=== PATIENT | male | born 1955 | race Two or more races ===

== ENCOUNTER 2022-12-15 15:54 | Inpatient (IN) | payer OTHER ==
[2022-12-15] VITALS (11 sets, daily range): BP systolic 117–144; BP diastolic 70–92; PULSE 62–88; RESP 14–20; TEMP 97.7–98.1; O2SAT 62–99
[~2022-12-15] VITALS: Ht 185.4 cm; Wt 103.8 kg
[2022-12-15] MEDS ORDERED: ONDANSETRON HCL 4 MG/2 ML VIAL IV ONE (16:15)
[2022-12-15] MEDS ORDERED: MIDAZOLAM HCL 2MG/2ML 2ml VIAL (1mg/ml) ONE (16:30)
[2022-12-15] MEDS ORDERED: VERAPAMIL 2.5MG/ML INJ 2ML VIAL IV ONE (16:30)
[2022-12-15] MEDS ORDERED: SODIUM CHL 0.9% 0 ML ONE (16:30)
[2022-12-15] MEDS ORDERED: MORPHINE SULFATE 4 MG/ML SYR/VIAL IV ONE (16:30)
[2022-12-15] MEDS ORDERED: fentaNYL CITRATE 100 MCG/2 ML VL ONE (16:30)
[2022-12-15] MEDS ORDERED: ANGIOMAX 250 MG VIAL IV ONE (16:30)
[2022-12-15] MEDS ORDERED: LIDOCAINE 2%HCL (LOCAL ANESTH.) INJ 20ML MDV ONE (16:34)
[2022-12-15 16:35] LABS: Basophils # (auto) 0 10 ^3/uL (0-0.2); Basophils % (auto) 0.9 % (0.0-2.0); Eosinophils # (auto) 0.1 10 ^3/uL (0-0.8); Hemoglobin 14.4 g/dL (13.5-17.5); Lymphocytes # (auto) 1.5 10 ^3/uL (0.4-5.4); Lymphocytes % (auto) 26.7 % (10.0-50.0); Mean Corpuscular Hgb Conc. 33.5 g/dL (32.0-36.0); Mean Corpuscular Volume 98.6 fL (80.0-100.0); Monocytes # (auto) 0.6 10 ^3/uL (0-1.3); Monocytes % (auto) 11.8 % (0.0-12.0); Neutrophils # (auto) 3.2 10 ^3/uL (1.6-8.6); Neutrophils % (auto) 58.6 % (37.0-80.0); Nucleated Red Blood Cells % 0.2 %; Red Blood Cells 4.36 10^6/uL (4.5-5.90); White Blood Cell 5.5 10^3/uL (4.4-10.8)
[2022-12-15] MEDS ORDERED: IODIXANOL 320MG/ML 100ML BTL IV ONE (16:35)
[2022-12-15] MEDS ORDERED: LIDOCAINE 1% HCL (LOCAL ANESTH.) INJ 20ML MDV ONE (16:51)
[2022-12-15] MEDS ORDERED: HEPARIN SODIUM (PORCINE) 5000 UNITS/ML 1ML VIAL ONE ×3 (16:53→17:22)
[2022-12-15 16:54] LABS: Albumin 3.7 g/dL (3.4-5.0); Calcium 8.8 mg/dL (8.5-10.1); Magnesium 2.3 mg/dL (1.6-2.6); Potassium 3.9 mmol/L (3.5-5.1)
[2022-12-15] MEDS ORDERED: IOHEXOL 350 MG/ML 100ML IJ ONE (16:55)
[2022-12-15 16:57] LABS: INR 1.09 (0.9-1.15); Partial Thromboplastin Time 26.9 SEC (24.5-34.5)
[2022-12-15 16:58] LABS: BUN/Creatinine Ratio 21.3 (10.0-20.0); Bilirubin, Total 0.5 mg/dL (0.2-1.0); Total Protein 6.8 g/dL (6.4-8.2)
[2022-12-15] MEDS ORDERED: diphenhdrAMINE HCL 50 MG/1 ML VL ONE (16:58)
[2022-12-15] MEDS ORDERED: EPTIFIBATIDE INJ (2MG/ML) 10ML VIAL IV ONE (17:20)
[2022-12-15] MEDS ORDERED: ATROPINE SULF 1 MG/10ml SYR ONE (17:24)
[2022-12-15] MEDS ORDERED: TICAGRELOR 90 MG TAB ONE (17:26)
[2022-12-15] MEDS ORDERED: MORPHINE SULFATE INJ 2 MG/ml SYRG IV PRN ×2 (17:45→18:00)
[2022-12-15] MEDS ORDERED: NITROGLYCERIN 0.4 MG SL TAB SL PRN ×3 (17:45→18:00)
[2022-12-15] MEDS ORDERED: ACETAMINOPHEN 500 MG TAB PO PRN (18:00)
[2022-12-15] MEDS ORDERED: SODIUM CHL 0.9% 500 ML IV ONE (18:00)
[2022-12-15] MEDS ORDERED: LEVO112T4 PO (19:54)
[2022-12-15] MEDS ORDERED: LOSA50TA46 PO (19:54)
[2022-12-15] MEDS ORDERED: LOSA25TA15 PO (19:54)
[2022-12-16] VITALS (10 sets, daily range): BP systolic 115–153; BP diastolic 68–77; PULSE 56–69; RESP 17–19; TEMP 97.6–98.3; O2SAT 94–97
[2022-12-16 06:25] LABS: Basophils # (auto) 0 10 ^3/uL (0-0.2); Basophils % (auto) 0.8 % (0.0-2.0); Eosinophils # (auto) 0.1 10 ^3/uL (0-0.8); Eosinophils % (auto) 1.7 % (0.0-7.0); Hematocrit 41.5 % (41.0-53.0); Lymphocytes % (auto) 19.6 % (10.0-50.0); Mean Corpuscular Hemoglobin 33.5 pg (28.0-32.0); Mean Corpuscular Hgb Conc. 33.7 g/dL (32.0-36.0); Mean Corpuscular Volume 99.6 fL (80.0-100.0); Monocytes # (auto) 0.5 10 ^3/uL (0-1.3); Monocytes % (auto) 9.9 % (0.0-12.0); Neutrophils # (auto) 3.6 10 ^3/uL (1.6-8.6); Red Blood Cells 4.17 10^6/uL (4.5-5.90); Red Cell Distribution Width 13.2 % (11.8-14.3); White Blood Cell 5.3 10^3/uL (4.4-10.8)
[2022-12-16 06:41] LABS: BUN/Creatinine Ratio 15.3 (10.0-20.0); Calcium 8.7 mg/dL (8.5-10.1); Potassium 4.2 mmol/L (3.5-5.1)
[2022-12-16 07:04] LABS: Urine Bacteria NONE SEEN /hpf (None Seen); Urine Blood Negative /uL (Negative); Urine Specific Gravity 1.015 (1.001-1.035); Urine WBC 1 /hpf (0 - 3)
[2022-12-16] MEDS ORDERED: IBUP1TAB5 PO (07:17)
[2022-12-16] MEDS ORDERED: ERGO1CAP12 PO (07:17)
[2022-12-16] MEDS ORDERED: GAB100C PO (07:17)
[2022-12-16 08:19] LABS: Cholesterol 169 mg/dL (< 200); HDL Cholesterol 46 mg/dL (40-59); LDL Cholesterol 104 mg/dL (< 100); Triglycerides 108 mg/dL (< 150)
[2022-12-16 08:22] LABS: Alcohol, Urine < 3.0 mg/dL (0-10); Amphetamine Screen, Urine NEGATIVE (NEGATIVE); Barbiturate Scree,Urine NEGATIVE (NEGATIVE); Benzodiazephine Screen, Urine POSITIVE (NEGATIVE); Cannabinoid Screen, Urine POSITIVE (NEGATIVE); Cocaine Screen, Urine NEGATIVE (NEGATIVE); Opiate Scree,Urine NEGATIVE (NEGATIVE); Phencyclidine Screen, Urine NEGATIVE (NEGATIVE)
[2022-12-16] MEDS: TICAGRELOR 90 MG TAB PO SCH ×2 (08:55→21:50)
[2022-12-16] MEDS ORDERED: ERGOCALCIFEROL 50,000 UNIT(1.25MG) CAP PO SCH (10:00)
[2022-12-16] MEDS ORDERED: GABAPENTIN 100 MG CAP PO ONE (10:15)
[2022-12-16] MEDS ORDERED: LEVOTHYROXINE SODIUM 112 MCG TAB PO ONE ×2 (10:15→11:00)
[2022-12-16] MEDS: CARVEDILOL 3.125 MG TAB PO SCH ×2 (10:36→21:53)
[2022-12-16] MEDS: IBUPROFEN 600 MG TAB PO PRN (10:36)
[2022-12-16] MEDS: ASPirin 81 mg TAB PO SCH (10:37)
[2022-12-16] MEDS ORDERED: LOSARTAN POTASSIUM 25 MG TAB PO SCH (18:00)
[2022-12-16] MEDS ORDERED: ATORVASTATIN 20 MG TAB PO SCH (22:00)
[2022-12-17] VITALS (7 sets, daily range): BP systolic 122–162; BP diastolic 54–88; PULSE 57–69; RESP 16–20; TEMP 97.5–98.4; O2SAT 96–99
[2022-12-17] MEDS: IBUPROFEN 600 MG TAB PO PRN (06:33)
[2022-12-17 06:51] LABS: Basophils # (auto) 0 10 ^3/uL (0-0.2); Basophils % (auto) 0.6 % (0.0-2.0); Eosinophils # (auto) 0.2 10 ^3/uL (0-0.8); Eosinophils % (auto) 3.1 % (0.0-7.0); Hematocrit 41.1 % (41.0-53.0); Lymphocytes # (auto) 1.1 10 ^3/uL (0.4-5.4); Lymphocytes % (auto) 18.9 % (10.0-50.0); Mean Corpuscular Hemoglobin 33.5 pg (28.0-32.0); Mean Corpuscular Hgb Conc. 34.1 g/dL (32.0-36.0); Mean Corpuscular Volume 98.1 fL (80.0-100.0); Monocytes # (auto) 0.6 10 ^3/uL (0-1.3); Monocytes % (auto) 10.9 % (0.0-12.0); Neutrophils # (auto) 3.8 10 ^3/uL (1.6-8.6); Neutrophils % (auto) 66.5 % (37.0-80.0); Nucleated Red Blood Cells % 0.1 %; Red Blood Cells 4.19 10^6/uL (4.5-5.90); White Blood Cell 5.7 10^3/uL (4.4-10.8)
[2022-12-17 06:52] LABS: BUN/Creatinine Ratio 16.4 (10.0-20.0); Calcium 8.9 mg/dL (8.5-10.1); Potassium 4.1 mmol/L (3.5-5.1)
[2022-12-17] MEDS ORDERED: LOSARTAN POTASSIUM 50 MG TAB PO SCH (07:00)
[2022-12-17] MEDS ORDERED: LEVOTHYROXINE SODIUM 112 MCG TAB PO SCH (07:00)
[2022-12-17] MEDS: ASPirin 81 mg TAB PO SCH (08:59)
[2022-12-17] MEDS: CARVEDILOL 3.125 MG TAB PO SCH (09:00)
[2022-12-17] MEDS: TICAGRELOR 90 MG TAB PO SCH (09:00)
[2022-12-17] MEDS ORDERED: TICA90TA PO (10:00)
[2022-12-17] MEDS ORDERED: FUROSEMIDE 20 MG/2 ML VIAL IV ONE (10:00)
[2022-12-17] MEDS ORDERED: CAR3125T PO (10:00)
[2022-12-17] MEDS ORDERED: LOSA50TA46 PO (10:00)
[2022-12-17] MEDS ORDERED: POTASSIUM CHL 20 Meq TABLET PO ONE (10:00)
[2022-12-17] MEDS ORDERED: ASPI-325 PO (10:00)
[2022-12-17] MEDS ORDERED: ATOR20TA50 PO (10:00)
[2022-12-17] MEDS ORDERED: LOSARTAN POTASSIUM 50 MG TAB PO ONE (11:30)
== END 2022-12-17 14:58 | disposition home or self-care (01) | DRG 246 ==
LOC: ER 15:54 → EDBD 15:54 → TELE 17:41 → TELE-WESTW 18:37
PROVIDERS: ADMIT Internal Medicine; ATTEND Internal Medicine
PROC: 4A023N7 Measurement of Cardiac Sampling and Pressure, Left Heart, Percutaneous Approach (ICD-10-PCS; principal; 2022-12-15)
PROC: 027034Z Dilation of Coronary Artery, One Artery with Drug-eluting Intraluminal Device, Percutaneous Approach (ICD-10-PCS; 2022-12-15)
PROC: B211YZZ Fluoroscopy of Multiple Coronary Arteries using Other Contrast (ICD-10-PCS; 2022-12-15)
PROC: B215YZZ Fluoroscopy of Left Heart using Other Contrast (ICD-10-PCS; 2022-12-15)
PROC: 5A09357 Assistance with Respiratory Ventilation, Less than 24 Consecutive Hours, Continuous Positive Airway Pressure (ICD-10-PCS; 2022-12-16)
DX: I21.19 ST elevation (STEMI) myocardial infarction involving other coronary artery of inferior wall (principal); I50.31 Acute diastolic (congestive) heart failure; I10 Essential (primary) hypertension; E03.9 Hypothyroidism, unspecified; E78.5 Hyperlipidemia, unspecified; R73.03 Prediabetes; E07.9 Disorder of thyroid, unspecified; E66.9 Obesity, unspecified; Z68.30 Body mass index [BMI] 30.0-30.9, adult; Z88.8 Allergy status to other drugs, medicaments and biological substances; Z79.82 Long term (current) use of aspirin; Z79.899 Other long term (current) drug therapy; Z88.1 Allergy status to other antibiotic agents; I25.82 Chronic total occlusion of coronary artery
CPT/HCPCS: 36415; 71045; 80048; 80053; 80061; 80307; 81001; 82306; 83036; 83735; 83880; 84443; 84484; 85025; 85379; 85610; 85730; 86850; 86900; 86901; 92941; 93005; 93306; 93458; 94660; 96374; 96375; 99152; 99153; 99291; G0378; J2001; J2250; J2405; Q9967